=== PATIENT | female | born 1975 | race Caucasian/White ===

== ENCOUNTER 2016-08-22 20:00 | Emergency (ER) | payer MEDICAID, OTHER ==
[~2016-08-22] VITALS: Ht 162.6 cm; Wt 76.7 kg
[~2016-08-22 20:00] MED LIST: ULTR50TA PO; ZOFR4TAB3 SL
[2016-08-22 20:04] VITALS: BP 147/78; PULSE 105; RESP 17; TEMP 98.7; O2SAT 97
--- NOTE | 2016-08-22 20:17 | PD ---
HPI Chief Complaint: Skin Problem Time Seen by Provider: 20:17 Travel History International Travel<30 days: No Contact w/Intl Traveler<30days: No Traveled to known affect area: No History of Present Illness HPI 40-year-old female presents to the emergency department for evaluation of left jaw pain for 3 weeks. She states she saw her primary care physician on Saturday who referred her to neurologist. She received an injection of Toradol on Saturday which should help her pain. Today, she noticed some erythema and warmth to the left face. She denies any fevers. She has no chronic medical problems and takes no prescribed medications. She denies any chance of . She does state she had similar symptoms approximately one year ago which resolved on their own. She denies any trauma. No ear pain. She does report history of dental pain to the back lower left teeth. She had them pulled by a dentist previously. She states that she has chronic pain to this area as well. No other complaints. PFSH Past Medical History Diabetes: No Diminished Hearing: No Gastrointestinal Disorders: Yes (H. PYLORI RECENTLY DIAGNOSED WITH ENDOSCOPY) Kidney Stones: Yes (lithotripsy) Immunizations Current: Yes Migraines: Yes (SINCE EARLY ) ?: Not LMP: 08-18-16 : 2 Para: 2 Past Surgical History Section: Yes (X2) Social History Alcohol Use: No Tobacco Use: No (15 years ago) Substance Use: No Allergies-Medications (Allergen,Severity, Reaction): Coded Allergies: Penicillin (Verified Adverse Reaction, Intermediate, nausea, 08/22/16) Reported Meds & Prescriptions Reported Meds & Active Scripts Active Ultram (Tramadol HCl) 50 Mg Tab 50 Mg PO Q6HR PRN Zofran ODT (Ondansetron HCl) 4 Mg Tab 4 Mg SL Q6H PRN FOR NAUSEA/VOMITING Review of Systems Except as stated in HPI: all other systems reviewed are Neg Physical Exam Narrative GENERAL: Well-developed well-nourished female patient, ambulatory. Afebrile. SKIN: Warm and dry. Patient has mild erythema and warmth noted over the left face. HEAD: Normocephalic. Atraumatic. No facial swelling. ENT: Mucosa pink and moist. No erythema or exudates. No uvular edema. No uvular , palatal, or tonsillar deviation. Airway patent. Nasal turbinates appear normal without nasal blood, purulent drainage or septal hematoma. Bilateral tympanic membranes are clear without erythema or perforation. No trismus noted. Patient is missing teeth #17, 18, 19, 20. She has tenderness over this area, but no evidence of fluctuance or dental abscess. EYES: No scleral icterus. No injection or drainage. NECK: Supple, trachea midline. No JVD or lymphadenopathy. CARDIOVASCULAR: Regular rate and rhythm without murmurs, gallops, or rubs. RESPIRATORY: Breath sounds equal bilaterally. No accessory muscle use. Lungs sounds are clear to auscultation. GASTROINTESTINAL: Abdomen soft, non-tender, nondistended. MUSCULOSKELETAL: No cyanosis, or edema. Data Data Last Documented VS Vital Signs Date Time Temp Pulse Resp B/P Pulse Ox O2 Delivery O2 Flow Rate FiO2 08/22/16 20:04 98.7 105 17 147/78 97 MDM Medical Decision Making Medical Screen Exam Complete: Yes Emergency Medical Condition: Yes Medical Record Reviewed: Yes Differential Diagnosis chronic jaw Pain versus TMJ versus dental abscess versus cellulitis Narrative Course 32-year-old female presents to the emergency department for admission left jaw pain for 3 days as well as some mild erythema or warmth to the left face that started this morning. She denies any trauma. No trismus or evidence of bony injury on exam. She does have some pain to palpation over the lower gingiva. Patient was started on antibiotic, clindamycin. She is given Toradol 60 mg IM in the emergency department we discharged a short-term prescription for tramadol for pain. She is to follow up with her primary care physician. Diagnosis Primary Impression: Facial cellulitis Additional Impression: Jaw pain Referrals: Primary Care Physician call for appointment Patient Instructions: Cellulitis (ED), General Instructions Additional Instructions: Take antibiotic as instructed until gone. Take [id number] ibuprofen for mild to moderate pain. Take tramadol as directed as needed for moderate to severe pain. Follow-up with your primary care physician. Return to the emergency department for any acute worsening of symptoms. Med/Other Pt SpecificInfo: Prescription(s) given Scripts Clindamycin 150 Mg [id number] Mg PO Q6H 10 Days Ref 0 Prov:Verna Lan 08/22/16 Disposition: 01 DISCHARGE HOME Condition: Stable Verna Lan Aug 22, 2016 20:17
[2016-08-22] MEDS ORDERED: CLIN1CAP5 PO (20:20)
[2016-08-22] MEDS ORDERED: TRAM50TA PO (20:23)
[2016-08-22] MEDS ORDERED: CLINDAMYCIN 150 MG CAP PO ONE (20:30)
[2016-08-22] MEDS ORDERED: KETOROLAC TROMETHAMINE 60 MG/2 ML (IM) VIAL IM ONE (20:30)
== END 2016-08-22 20:43 | disposition home or self-care (01) ==
LOC: PHEFT 20:00
DX: L03.211 Cellulitis of face (principal); R68.84 Jaw pain
CPT/HCPCS: 96372; 99283; J1885